=== PATIENT | male | born 1975 | race Caucasian/White ===

== ENCOUNTER 2016-11-10 16:58 | Emergency (ER) | payer MEDICARE, OTHER ==
[~2016-11-10 16:58] MED LIST: ACETAMINOPHEN325 MG PO; AL-MAG HYDROX-S30 M1 PO; ALPRAZOLAM PO; ARIXTRA7.5 MG/0.6 SQ; ASPIRIN81 M1 PO; CELEXA PO; COUMADIN5 MG PO; CYMBALTA PO; GABAPENTIN800 MG PO; HYDROCODON-ACE1 EAC5 PO; LAMICTAL PO; LAMICTAL5 MG PO; LISINOPRIL PO; LISINOPRIL20 MG PO; LORTAB 10-5001 EACH PO; LORTAB 10/500 T1 TAB PO; LORTAB 5/500 TA1 TA1 PO; MILK OF MAGNESIA PO; MINIPRESS PO; NEURONTIN800 MG PO; NICOTINE TRANSDE7 MG EXT; NORCO 10/3251 TAB PO; NORCO 7.5-3251 EACH PO; PRINIVIL40 MG PO; SEROQUEL300 M1 PO; TRAZODONE HCL150 MG PO; TYLENOL #3 PO; VOLTAREN50 MG PO; WARFARIN SODIUM2 MG PO; XANAX1 MG PO; XANAX2 MG PO; XARELTO20 MG PO; ZESTRIL40 MG PO; [UNRECOGNIZED DRUG - OTHER] PO
[2016-11-10 18:41] LABS: AMPHETAMINE POS (NEG); BARBITURATES NEG (NEG); BENZODIAZEPINES NEG (NEG); COCAINE NEG (NEG); MARIJUANA POS (NEG); OPIATES POS (NEG); TRICYCLIC ANTIDEPRESSANTS NEG (NEG); U METHADONE NEG (NEG)
[2017-02-06] MEDS ORDERED: SEROQUEL400 MG PO (16:34)
[2017-02-06] MEDS ORDERED: DULOXETINE HCL60 MG PO (16:34)
[2017-02-06] MEDS ORDERED: NEURONTIN800 MG PO (16:34)
[2017-02-06] MEDS ORDERED: LISINOPRIL20 MG PO (16:35)
== END 2016-11-10 23:10 ==
LOC: CED 16:58
PROVIDERS: Emergency Medicine
DX: R45.851 Suicidal ideations (principal)
CPT/HCPCS: 80307; 99285

== ENCOUNTER 2016-11-21 04:28 | Inpatient (IN) | payer MEDICARE, OTHER ==
--- NOTE | ~2016-11-21 | PN ---
Unit #: [id number] #: [id number] Patient: WAI HENNING [id number] [facility] [address] [place] [address] [id number] I MR#: [id number] NAME: WAI HENNING ROOM: P212 Age: 41 Sex: M Admission Date: 11/21/2016 : 1975 Attending Physician: Mak Hirsch M.D. Admitting Physician: Mak Hirsch M.D. Primary Care Physician: Everett Holguin PROGRESS NOTES DATE 11/22/2016 DISCUSSION The patient remains hopeless and dysphoric but is expressing hope that he will be able to go to a prison upon his discharge from this facility. He has begun work with his transition social worker regarding this. He will be transferred to the [address] [place] [address] in a timely fashion as possible. Dictated by... Mak Hirsch M.D. CB/huey TD: 11/22/2016 13:21 JOB #: [id number] [facility] PROGRESS NOTES X Mak Hirsch MD PROGRESS NOTE
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
--- NOTE | ~2016-11-21 | PN ---
Unit #: [id number] #: [id number] Patient: WAI HENNING [id number] [facility] [address] [place] [address] [id number] I MR#: [id number] NAME: WAI HENNING ROOM: [facility] Age: 41 Sex: M Admission Date: 11/21/2016 : 1975 Attending Physician: Mak Hirsch M.D. Admitting Physician: Mak Hirsch M.D. Primary Care Physician: Everett Holguin PROGRESS NOTES DATE 12/05/2016 DISCUSSION The patient seems more positive today regarding potential fdc placement, and we will look to continue hospitalization until that can be arranged. Otherwise, the patient is pleasant and cooperative and active within the therapeutic milieu. He is reporting reduction in suicidal thinking. Dictated by... Mak Hirsch M.D. CB/bzg TD: 12/05/2016 14:00 JOB #: [id number] [facility] PROGRESS NOTES Page 1 of 1 X Mak Hirsch MD PROGRESS NOTE
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
--- NOTE | ~2016-11-21 | PN ---
Unit #: [id number] #: [id number] Patient: WAI HENNING [id number] [facility] [address] [place] [address] [id number] I MR#: [id number] NAME: WAI HENNING ROOM: [facility] Age: 41 Sex: M Admission Date: 11/21/2016 : 1975 Attending Physician: Mak Hirsch M.D. Admitting Physician: Mak Hirsch M.D. Primary Care Physician: Everett Holguin PROGRESS NOTES DATE 11/30/2016 DISCUSSION The patient offers no new complaints today. We continue to await word regarding possible post-discharge intermediate placement. Dictated by... Mak Hirsch M.D. CB/renetta TD: 11/30/2016 13:24 JOB #: [id number] [facility] PROGRESS NOTES X Mak Hirsch MD X PROGRESS NOTE
--- NOTE | ~2016-11-21 | PN ---
Unit #: [id number] #: [id number] Patient: WAI HENNING [id number] [facility] [address] [place] [address] [id number] I MR#: [id number] NAME: WAI HENNING ROOM: [facility] Age: 41 Sex: M Admission Date: 11/21/2016 : 1975 Attending Physician: Mak Hirsch M.D. Admitting Physician: Mak Hirsch M.D. Primary Care Physician: Everett Holguin PROGRESS NOTES DATE 12/07/2016 DISCUSSION The patient is in brighter spirits with planned a.m. discharge. We plan to order discharge tomorrow for early Friday morning discharge. Dictated by... Mak Hirsch M.D. CB/mauro TD: 12/07/2016 15:01 JOB #: [id number] [facility] PROGRESS NOTES Page 1 of 1 X Mak Hirsch MD X PROGRESS NOTE
--- NOTE | ~2016-11-21 | PN ---
Unit #: [id number] #: [id number] Patient: WAI HENNING [id number] [facility] [address] [place] [address] [id number] I MR#: [id number] NAME: WAI HENNING ROOM: [facility] Age: 41 Sex: M Admission Date: 11/21/2016 : 1975 Attending Physician: Mak Hirsch M.D. Admitting Physician: Mak Hirsch M.D. Primary Care Physician: Everett Holguin PROGRESS NOTES DATE 11/29/2016 DISCUSSION The patient offers no new complaints today. We continue to await word regarding potential residential placement in a halfway given the patient's inability to thrive outside the hospital independently. Dictated by... Mak Hirsch M.D. CB/bzmyles TD: 11/30/2016 07:14 JOB #: [id number] [facility] GOLDBERG NOTES X Mak Hirsch MD PROGRESS NOTE
--- NOTE | ~2016-11-21 | PN ---
Unit #: [id number] #: [id number] Patient: WAI HENNING [id number] [facility] [address] [place] [address] [id number] I MR#: [id number] NAME: WAI HENNING ROOM: [facility] Age: 41 Sex: M Admission Date: 11/21/2016 : 1975 Attending Physician: Mak Hirsch M.D. Admitting Physician: Mak Hirsch M.D. Primary Care Physician: Evreett Holguin PROGRESS NOTES DATE 12/04/2016 DISCUSSION The patient reports that his social group worker, Mr. aButista, has located a possible location for him, but the patient is now expressing some hesitance to go there which has been frustratingly his course in the past. If the patient is offered housing as of tomorrow and declines it, I will go ahead with the plan for discharge. Dictated by... Mak Hirsch M.D. CB/renetta TD: 12/04/2016 13:58 JOB #: [id number] [facility] PROGRESS NOTES Page 1 of 1 X Mak Hirsch MD X PROGRESS NOTE
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
--- NOTE | ~2016-11-21 | CO ---
Unit #: [id number] #: [id number] Patient: MARGARITO HENNING [id number] [place] [address] [id number] I MR#: [id number] NAME: MARGARITO HENNING. ROOM: P266 Age: 41 Sex: M Admission Date: 11/21/2016 : 1975 Attending Physician: Mak Hirsch M.D. Primary Care Physician: Teodoro Nick M.D. Consultation Date: 11/26/2016 CONSULTATION REPORT JOB NOTE: DICTATED FOR NOT DICTATED SUBJECTIVE Margarito is a 41-year-old who reported to nursing staff in the past 48 hours that he has a yellow discharge from his penis. He also reports burning with urination. 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 PLAN Doxycycline 100 mg one p.o. b.i.d. x7 days. Dictated by... Rand Turcios P.A.-C. for Everett Styles/nivia TD: 11/27/2016 18:13 JOB #: [id number] CONSULTATION REPORT X Rand Turcios CONSULTATION REPORT
--- NOTE | ~2016-11-21 | PN ---
Unit #: [id number] #: [id number] Patient: WAI HENNING [id number] [facility] [address] [place] [address] [id number] I MR#: [id number] NAME: WAI HENNING ROOM: [facility] Age: 41 Sex: M Admission Date: 11/21/2016 : 1975 Attending Physician: Mak Hirsch M.D. Admitting Physician: Mak Hirsch M.D. Primary Care Physician: Everett Holguin PROGRESS NOTES DATE 11/26/2016 DISCUSSION The patient remains generally pleasant and cooperative in his interactions with peers and staff. He is complaining of urethra discharge and is fearful he may have contracted a sexually transmitted disease. I will ask for a medical consult related thereto. Dictated by... Mak Hirsch M.D. CB/gucci TD: 11/26/2016 22:21 JOB #: [id number] [facility] GOLDBERG NOTES X Mak Hirsch MD PROGRESS NOTE
--- NOTE | ~2016-11-21 | PN ---
Unit #: [id number] #: [id number] Patient: WAI HENNING [id number] [facility] [address] [place] [address] [id number] I MR#: [id number] NAME: WAI HENNING ROOM: [facility] Age: 41 Sex: M Admission Date: 11/21/2016 : 1975 Attending Physician: Mak Hirsch M.D. Admitting Physician: Mak Hirsch M.D. Primary Care Physician: Everett Holguin PROGRESS NOTES DATE 11/28/2016 DISCUSSION The patient is abed today offering no new complaints. We continue to await results of his PPD, and we continue to await word regarding shelter placement. The patient has been pleasant and cooperative and has reported reduction in suicidal ideation during today's interview. Dictated by... Mak Hirsch M.D. CB/renetta TD: 11/28/2016 14:22 JOB #: [id number] [facility] PROGRESS NOTES X Mak Hirsch MD PROGRESS NOTE
--- NOTE | ~2016-11-21 | PN ---
Unit #: [id number] #: [id number] Patient: WAI HENNING [id number] [facility] [address] [place] [address] [id number] I MR#: [id number] NAME: WAI HENNING ROOM: [facility] Age: 41 Sex: M Admission Date: 11/21/2016 : 1975 Attending Physician: Mak Hirsch M.D. Admitting Physician: Mak Hirsch M.D. Primary Care Physician: Everett Holguin PROGRESS NOTES DATE 12/01/2016 DISCUSSION The patient offers no new complaints today. He is active within the therapeutic milieu and we await word regarding possible placement in a fpc or other such setting. Dictated by... Mak Hirsch M.D. CB/gucci TD: 12/01/2016 21:08 JOB #: [id number] [facility] PROGRESS NOTES X Mak Hirsch MD PROGRESS NOTE
--- NOTE | ~2016-11-21 | CR63 ---
[facility] A Service of [facility] RADIOLOGY TEXT RESULTS PATIENT: WAI HENNING LOCATION: P2 P266-2 : [birth year] UNIT #: [id number] AGE: [address]: Mak Hirsch MD SEX: M ORDER DR: [id number] [facility] [address] [facility]. [place], [place] [address] [id number] I MR#: [id number] Acc #: [id number] NAME: WAI HENNING : 1975 SEX: M STUDY DATE/TIME: 11/30/2016 14:04 UNIT: [facility] ROOM: [facility] STUDY DESCRIPTION: CR Chest 2 View Attending Physician: Mak Hirsch M.D. Ordering Physician: Sosa Diana A.P.R.N. Primary Care Physician: Teodoro Nick M.D. MEDICAL IMAGING REPORT This report is preliminary unless electronic signature is present EXAM Chest 2 views 11/30/2016 HISTORY Positive PPD skin test. COMPARISON Chest 01/29/2016. FINDINGS 2 views of the chest demonstrate clear lungs. No pleural effusion or pneumothorax. Heart size and mediastinum are normal. Pulmonary vasculature normal. IMPRESSION No acute cardiopulmonary findings. Dictated by... Orestes Aguilar M.D. THIS IS AN ELECTRONICALLY VERIFIED REPORT Orestes Aguilar M.D. at 12/02/2016 7:47 AM TANIA/ryan TD: 12/01/2016 13:43 JOB #: [id number] MEDICAL IMAGING REPORT COPY
--- NOTE | ~2016-11-21 | PN ---
Unit #: [id number] #: [id number] Patient: WAI HENNING [id number] [facility] [address] [place] [address] [id number] I MR#: [id number] NAME: WAI HENNING ROOM: [facility] Age: 41 Sex: M Admission Date: 11/21/2016 : 1975 Attending Physician: Mak Hirsch M.D. Admitting Physician: Mak Hirsch M.D. Primary Care Physician: Everett Holguin PROGRESS NOTES DATE 11/27/2016 DISCUSSION We continue to await word regarding possible placement in a nursing home or other such setting. In the meantime, the patient's last PPD was not read, and we will have to repeat this test. The patient has been started on doxycycline for nonspecific urethritis. Current treatment continues. Dictated by... Mak Hirsch M.D. CB/bzg TD: 11/27/2016 12:38 JOB #: [id number] [facility] GOLDBERG NOTES X Mak Hirsch MD PROGRESS NOTE
--- NOTE | ~2016-11-21 | CO ---
Unit #: [id number] #: [id number] Patient: MARGARITO HENNING [id number] [place] [address] [id number] I MR#: [id number] NAME: MARGARITO HENNING. ROOM: [facility] Age: 41 Sex: M Admission Date: 11/21/2016 : 1975 Attending Physician: Mak Hirsch M.D. Primary Care Physician: Teodoro Nick M.D. Consultation Date: 12/01/2016 CONSULTATION REPORT JOB NOTE: DICTATED FOR NOT DICTATED HISTORY OF PRESENT ILLNESS Margarito had a TB skin test placed on 11/29/2016 at 11:50 a.m. On 11/30/2016, he appeared to be having reaction to the TB skin test. There was some concern that it might be positive. He reports that the area on his right forearm got very red and raised. He did have some itching. No chest pain. No cough. No shortness of breath. No other complaints. PHYSICAL EXAMINATION CARDIAC: Regular rate and rhythm. No murmur, gallop, or rub. RESPIRATORY: Clear to auscultation bilaterally. SKIN: Negative TB skin test. ASSESSMENT AND PLAN TB skin test. I read the TB skin test at 1400 hours on 12/01/2016, which is 48 hours after the TB skin test was placed and at that time, it was negative. It is very likely that he had a local allergic reaction to the test that has resolved. He had a chest x-ray yesterday that was negative. Dictated by... Esther Marr A.P.R.N. for Everett Styles/nivia TD: 12/01/2016 18:08 JOB #: [id number] CONSULTATION REPORT X ESTHER MANZANARES APRN CONSULTATION REPORT
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
--- NOTE | ~2016-11-21 | PN ---
Unit #: [id number] #: [id number] Patient: WAI HENNING [id number] [facility] [address] [place] [address] [id number] I MR#: [id number] NAME: WAI HENNING ROOM: [facility] Age: Sex: M Admission Date: 11/21/2016 : 1975 Attending Physician: Mak Hirsch M.D. Admitting Physician: Mak Hirsch M.D. Primary Care Physician: Everett Holguin PROGRESS NOTES DATE 12/06/2016 DISCUSSION The patient is in better spirits today. He has been in contact with his destination shelter, and a prescription for his HCV waver has been written. The patient's chest x-ray and PPD are both negative. Dictated by... Mak Hirsch M.D. CB/renetta TD: 12/06/2016 13:10 JOB #: [id number] [facility] GOLDBERG NOTES Page 1 of 1 X aMk Hirsch MD PROGRESS NOTE
--- NOTE | ~2016-11-21 | PN ---
Unit #: [id number] #: [id number] Patient: WAI HENNING [id number] [facility] [address] [place] [address] [id number] I MR#: [id number] NAME: WAI HENNING ROOM: [facility] Age: 41 Sex: M Admission Date: 11/21/2016 : 1975 Attending Physician: Mak Hirsch M.D. Admitting Physician: Mak Hirsch M.D. Primary Care Physician: Everett Holguin PROGRESS NOTES DATE 11/25/2016 DISCUSSION The patient is abed resting comfortably today. He offers no new complaints. We will continue to wait word regarding possible jail placement. Dictated by... Mak Hirsch M.D. CB/gucci TD: 11/26/2016 01:13 JOB #: [id number] [facility] PROGRESS NOTES X Mak Hirsch MD X PROGRESS NOTE
--- NOTE | ~2016-11-21 | PN ---
Unit #: [id number] #: [id number] Patient: WAI HENNING [id number] [facility] [address] [place] [address] [id number] I MR#: [id number] NAME: WAI HENNING ROOM: [facility] Age: 41 Sex: M Admission Date: 11/21/2016 : 1975 Attending Physician: Mak Hirsch M.D. Admitting Physician: Mak Hirsch M.D. Primary Care Physician: Everett Holguin PROGRESS NOTES DATE 11/24/2016 DISCUSSION The patient offers no new complaints today. He is generally pleasant and active in the therapeutic milieu. We continue to await word regarding possible skilled nursing placement. Dictated by... Mak Hirsch M.D. CB/ankush TD: 11/24/2016 13:58 JOB #: [id number] [facility] PROGRESS NOTES X Mak Hirsch MD X PROGRESS NOTE
--- NOTE | ~2016-11-21 | PN ---
Unit #: [id number] #: [id number] Patient: WAI HENNING [id number] [facility] [address] [place] [address] [id number] MR#: [id number] NAME: WAI HENNING ROOM: [facility] Age: 41 Sex: M Admission Date: 11/21/2016 : 1975 Attending Physician: aMk Hirsch M.D. Admitting Physician: Mak Hirsch M.D. Primary Care Physician: Everett Holguin PROGRESS NOTES DATE 11/23/2016 DISCUSSION The patient offers no new complaints today. We continue to await word regarding possible half-way placement. Dictated by... Mak Hirsch M.D. CB/mauro TD: 11/23/2016 11:58 JOB #: [id number] [facility] PROGRESS NOTES X Mak Hirsch MD X PROGRESS NOTE
--- NOTE | ~2016-11-21 | PN ---
Unit #: [id number] #: [id number] Patient: WAI HENNING [id number] [facility] [address] [place] [address] [id number] MR#: [id number] NAME: WAI HENNING ROOM: [facility] Age: 41 Sex: M Admission Date: 11/21/2016 : 1975 Attending Physician: Mak Hirsch M.D. Admitting Physician: Mak Hirsch M.D. Primary Care Physician: Everett Holguin PROGRESS NOTES DATE 12/02/2016 DISCUSSION The patient remains pleasant and cooperative (1)____ interactions with peers and staff. We continue to await word regarding disposition. Dictated by... Mak Hirsch M.D. CB/gucci TD: 12/02/2016 18:49 JOB #: [id number] [facility] PROGRESS NOTES Page 1 of 1 X Mak Hirsch MD X PROGRESS NOTE
--- NOTE | ~2016-11-21 | PN ---
Unit #: [id number] #: [id number] Patient: WAI HENNING [id number] [facility] [address] [place] [address] [id number] MR#: [id number] NAME: WAI HENNING ROOM: [facility] Age: 41 Sex: M Admission Date: 11/21/2016 : 1975 Attending Physician: Mak Hirsch M.D. Admitting Physician: Mak Hirsch M.D. Primary Care Physician: Everett Holguin PROGRESS NOTES DATE 12/03/2016 DISCUSSION The patient remains pleasant and cooperative. We continue to await word regarding disposition. Dictated by... Mak Hirsch M.D. CB/renetta TD: 12/03/2016 13:43 JOB #: [id number] [facility] PROGRESS NOTES Page 1 of 1 X Mak Hirsch MD X PROGRESS NOTE
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
[2016-11-22 09:32] LABS: BASOPHIL# 0.1 X10e3 (0-0.3); BASOPHIL% 1.1 % (0-2.5); EOSINOPHIL# 0.1 X10e3 (0-0.7); EOSINOPHIL% 1.6 % (0.0-7.0); HEMATOCRIT 40.8 % (38.0-50.0); HEMOGLOBIN 13.4 gm/dL (13.0-16.0); LYMPHOCYTE# 1.3 X10e3 (1.0-3.5); LYMPHOCYTE% 18.1 % (17.0-45.0); MEAN CELL VOLUME 89.6 FL (83-96); MEAN CORPUSCULAR HEMOGLOBIN 29.4 PG (28-34); MEAN CORPUSCULAR HGB CONC 32.9 g/dL (30-36); MEAN PLATELET VOLUME 8.3 FL (6.5-11.5); MONOCYTE# 0.4 X10e3 (0-1.0); MONOCYTE% 5.2 % (3.0-12.0); NEUTROPHIL# 5.4 X10e3 (1.5-7.1); PLATELET COUNT 267 X10e3 (140-420); RED BLOOD COUNT 4.55 X10e (3.90-5.60); RED CELL DISTRIBUTION WIDTH 13.7 % (11.0-15.5); WHITE BLOOD COUNT 7.2 X10e3 (4.0-10.5)
[2016-11-22 09:38] LABS: DIFF IND NO
[2016-11-22 10:02] LABS: THYROID STIMULATING HORMONE 0.16 uIU/ml (0.34-5.60)
[2016-11-22 10:14] LABS: FREE THYROXIN (T4) 0.8 ng/dL (0.58-1.64)
[2016-11-22 10:40] LABS: ALBUMIN SERUM 3.8 g/dL (3.5-5.0); ALKALINE PHOSPHATASE 87 U/L (32-92); ALT (SGPT) 65 U/L (10-40); AST (SGOT) 48 U/L (10-42); BILIRUBIN,TOTAL 0.7 mg/dL (0.2-2.0); BLOOD UREA NITROGEN 16 mg/dL (9-23); CARBON DIOXIDE 25 mmol/L (22-31); CHLORIDE 107 mmol/L (100-111); CREATININE SERUM 0.8 mg/dL (0.6-1.4); GLOM FILT RATE Estimated ABOVE60 mL/min (>60); GLUCOSE FASTING 121 mg/dL (70-110); POTASSIUM 3.9 mmol/L (3.5-5.1); PROTEIN TOTAL SERUM 6.9 g/dL (6.0-8.3); SODIUM 135 mmol/L (135-145)
[2016-11-22 12:43] LABS: URINE APPEARANCE CLEAR; URINE BILIRUBIN NEG (NEG); URINE BLOOD NEG (NEG); URINE COLOR YELLOW; URINE GLUCOSE NEG (NEG); URINE KETONE NEG (NEG); URINE LEUKOCYTE ESTERASE 1+ (NEG); URINE NITRATE NEG (NEG); URINE PROTEIN NEG (NEG); URINE SPECIFIC GRAVITY 1.013 (1.003-1.035)
[2016-11-22 12:45] LABS: U HYALINE CASTS AUWI 0-2 /[LPF]; URBCS1 AUWI 0-2 /[HPF] (0-2); URINE BACTERIA AUWI NEG (NEGATIVE); URINE SQUAMOUS EPITHELIAL CELL NONE SEEN /[HPF]
[2016-11-22 13:44] LABS: AMPHETAMINE POS (NEG); BARBITURATES NEG (NEG); BENZODIAZEPINES POS (NEG); COCAINE NEG (NEG); MARIJUANA POS (NEG); OPIATES POS (NEG); TRICYCLIC ANTIDEPRESSANTS POS (NEG); U METHADONE NEG (NEG)
[2017-02-06] MEDS ORDERED: SEROQUEL400 MG PO (16:34)
[2017-02-06] MEDS ORDERED: DULOXETINE HCL60 MG PO (16:34)
[2017-02-06] MEDS ORDERED: NEURONTIN800 MG PO (16:34)
[2017-02-06] MEDS ORDERED: LISINOPRIL20 MG PO (16:35)
== END 2016-12-09 10:30 | disposition home or self-care (01) | DRG 885 ==
LOC: P2S 04:28 → P2L 11-22 14:30 → POF 11-22 15:28 → P2L 11-22 15:34 → POF 11-28 13:43 → P2L 11-28 13:44
PROVIDERS: Specialist
DX: F33.1 Major depressive disorder, recurrent, moderate (principal); R45.851 Suicidal ideations; I10 Essential (primary) hypertension; F60.3 Borderline personality disorder; G89.29 Other chronic pain; F17.210 Nicotine dependence, cigarettes, uncomplicated; N34.1 Nonspecific urethritis; F34.1 Dysthymic disorder
CPT/HCPCS: 71020; 80053; 80307; 81003; 84439; 84443; 85025; 99285

== ENCOUNTER 2017-01-03 17:47 | Inpatient (IN) | payer MEDICARE, OTHER ==
--- NOTE | ~2017-01-03 | PN ---
Unit #: [id number] #: [id number] Patient: WAI HENNING [id number] [facility] [address] [place] [address] [id number] I MR#: [id number] NAME: WAI HENNING ROOM: [facility] Age: 41 Sex: M Admission Date: 01/03/2017 : 1975 Attending Physician: Mak Hirsch M.D. Admitting Physician: Mak Hirsch M.D. Primary Care Physician: Everett Holguin PROGRESS NOTES DATE 01/07/2017 DISCUSSION The patient continues to express sad mood. He does apologize related to the recent episode in which he did not go to the fpc which has been arranged by Mr. Bautista. Otherwise the patient offers no new complaints, and we continue current treatment. He remains on suicide precautions, and he is at maximum doses of virtually all of his medications, and I do not plan any changes given the situation and nature of his current symptoms. Dictated by... Mak Hirsch M.D. CB/renetta TD: 01/07/2017 15:16 JOB #: [id number] [facility] PROGRESS NOTES Page 1 of 1 X Mak Hirsch MD X PROGRESS NOTE
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
--- NOTE | ~2017-01-03 | PN ---
Unit #: [id number] #: [id number] Patient: WAI HENNING [id number] [facility] [address] [place] [address] [id number] I MR#: [id number] NAME: WAI HENNING ROOM: [facility] Age: 41 Sex: M Admission Date: 01/03/2017 : 1975 Attending Physician: Mak Hirsch M.D. Admitting Physician: Mak Hirsch M.D. Primary Care Physician: Everett Holguin PROGRESS NOTES DATE 01/06/2017 DISCUSSION The patient continues to complain of dysphoric mood when seen today. This physician has clarified with Mr. , the patient's social media strategist the patient's "lack of transportation" to the longterm with the social media strategist had arranged. The patient had told the social media strategist that he had planned to have his cousin drive him to the facility and had gone home to "get some things together" rather than accepting an offer of transportation from the social media strategist. The patient will firmly confronted regarding this today. Dictated by... Everett Dickson TD: 01/06/2017 13:27 JOB #: [id number] [facility] PROGRESS NOTES Page 1 of 1 X Mak Hirsch MD X PROGRESS NOTE
--- NOTE | ~2017-01-03 | CO ---
Unit #: [id number] #: [id number] Patient: MARGARITO HENNING [id number] [place] [address] [id number] MR#: [id number] NAME: MARGARITO HENNING. ROOM: 61 Age: 41 Sex: M Admission Date: 01/03/2017 : 1975 Attending Physician: Mak Hirsch M.D. Primary Care Physician: Teodoro Nick M.D. CONSULTATION REPORT SUBJECTIVE Margarito is a 41-year-old who had complained of some clear postnasal drainage over the past 48 hours. We have been asked to assess and give recommendations. He has had no complaints of sore throat, cough, or shortness of breath. He has had no recorded increased temperatures. OBJECTIVE GENERAL: Alert, well nourished, in no apparent distress. VITAL SIGNS: Blood pressure 130/70, heart rate 80, respirations 16, and temperature 98.6. HEENT: Normocephalic. TMs not viewed. Oral and nasal passages clear. Small amounts of clear postnasal drainage noted. NECK: Supple without lymphadenopathy. CHEST: Lungs clear. ASSESSMENT Viral upper respiratory infection versus allergic rhinitis, resolved by the patient's report. PLAN No Rx. He is to let us know if anything else develops. Dictated by... Rand Turcios P.A.-C. for Everett Styles/nivia TD: 01/07/2017 17:06 JOB #: [id number] CONSULTATION REPORT Page 1 of 1 X Rand Turcios X CONSULTATION REPORT
--- NOTE | ~2017-01-03 | PN ---
Unit #: [id number] #: [id number] Patient: WAI HENNING [id number] [facility] [address] [place] [address] [id number] I MR#: [id number] NAME: WAI HENNING ROOM: P261 Age: 41 Sex: M Admission Date: 01/03/2017 : 1975 Attending Physician: Mak Hirsch M.D. Admitting Physician: Mak Hirsch M.D. Primary Care Physician: Everett Holguin PROGRESS NOTES DATE 01/08/2017 DISCUSSION The patient offers no new complaints today. He is contrite over the events which led to his failing to make it to the halfway which had been arranged by Mr. Bautista during his last day in the hospital and continues to express some feelings of hopelessness and ambivalence regarding discharge. I have redirected the patient's expectations regarding inpatient care during today's interview, and I have told him to expect discharge by the end of the week. Dictated by... Mak Hirsch M.D. CB/renetta TD: 01/08/2017 12:59 JOB #: [id number] [facility] PROGRESS NOTES Page 1 of 1 X Mak Hirsch MD X PROGRESS NOTE
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
--- NOTE | ~2017-01-03 | PN ---
Unit #: [id number] #: [id number] Patient: WAI HENNING [id number] [facility] [address] [place] [address] [id number] MR#: [id number] NAME: WAI HENNING ROOM: P261 Age: 41 Sex: M Admission Date: 01/03/2017 : 1975 Attending Physician: Mak Hirsch M.D. Admitting Physician: Mak Hirsch M.D. Primary Care Physician: Everett Holguin PROGRESS NOTES DATE 01/05/2017 DISCUSSION The patient offers no new complaints today. He states that he feels "about the same" and continues to endorse positive suicidal ideation and once again his expectations of inpatient care are redirected. Dictated by... Mak Hirsch M.D. CB/to TD: 01/05/2017 15:32 JOB #: [id number] [facility] PROGRESS NOTES Page 1 of 1 X Mak Hirsch MD PROGRESS NOTE
--- NOTE | ~2017-01-03 | PN ---
Unit #: [id number] #: [id number] Patient: WAI HENNING [id number] [facility] [address] [place] [address] [id number] I MR#: [id number] NAME: WAI HENNING ROOM: [facility] Age: 41 Sex: M Admission Date: 01/03/2017 : 1975 Attending Physician: Mak Hirsch M.D. Admitting Physician: Mak Hirsch M.D. Primary Care Physician: Everett Holguin PROGRESS NOTES DATE 01/09/2017 DISCUSSION The patient is in brighter spirits and is reporting reduction in suicidal ideation. We continue to plan on a.m. discharge. Dictated by... Mak Hirsch M.D. CB/huey TD: 01/09/2017 13:04 JOB #: [id number] [facility] PROGRESS NOTES Page 1 of 1 X Mak Hirsch MD X PROGRESS NOTE
[2017-02-06] MEDS ORDERED: NEURONTIN800 MG PO (16:34)
[2017-02-06] MEDS ORDERED: SEROQUEL400 MG PO (16:34)
[2017-02-06] MEDS ORDERED: DULOXETINE HCL60 MG PO (16:34)
[2017-02-06] MEDS ORDERED: LISINOPRIL20 MG PO (16:35)
== END 2017-01-10 15:20 | disposition home or self-care (01) | DRG 885 ==
LOC: P2L 17:47
DX: F33.1 Major depressive disorder, recurrent, moderate (principal); R45.851 Suicidal ideations; I10 Essential (primary) hypertension; Z79.899 Other long term (current) drug therapy; K21.9 Gastro-esophageal reflux disease without esophagitis; J06.9 Acute upper respiratory infection, unspecified; J30.9 Allergic rhinitis, unspecified; F60.9 Personality disorder, unspecified

== ENCOUNTER 2017-01-26 11:17 | Emergency (ER) | payer MEDICARE, OTHER ==
--- NOTE | ~2017-01-26 | CT2 ---
[facility] A Service of [facility] RADIOLOGY TEXT RESULTS PATIENT: WAI HENNING LOCATION: [facility] : 79 UNIT #: [id number] AGE: [address]: Cecilio Rodriguez MD SEX: M ORDER DR: [id number] [place] [id number] [facility]. [place], [place] [address] [id number] MR#: [id number] Acc #: [id number] NAME: WAI HENNING : 1975 SEX: M STUDY DATE/TIME: 01/26/2017 13:27 UNIT: SHER ROOM: STUDY DESCRIPTION: CT Abd and Pelv W Cont Attending Physician: Cecilio Rodriguez M.D. Ordering Physician: Cecilio Rodriguez M.D. Primary Care Physician: Teodoro Nick M.D. MEDICAL IMAGING REPORT This report is preliminary unless electronic signature is present EXAM CT of the abdomen and pelvis with contrast INDICATION Left upper abdominal pain and nausea for [address] scan of the abdomen and pelvis was performed following the administration of IV contrast. Coronal and sagittal reformatted images were obtained. Comparison with 03/14/2015. This CT exam was performed with one or more of the following radiation dose reduction techniques: automatic exposure control, adjustment of mA and/or kV according to patient size, and iterative reconstruction. FINDINGS The lung bases are clear. There is focal fatty infiltration of the liver adjacent to the falciform ligament. The liver is unremarkable. The gallbladder is unremarkable. Spleen is unremarkable. The kidneys are unremarkable. The adrenal glands are unremarkable. The pancreas is unremarkable. PELVIS: There is a stent within the right common iliac and external iliac veins. Colon is unremarkable. The appendix is normal. There is no free fluid. Remainder of the pelvis is unremarkable. Bone windows demonstrate an old compression deformity of L3. IMPRESSION There are no CT findings to explain the patient's symptoms. There are no acute findings. [facility] A Service [facility] RADIOLOGY TEXT RESULTS PATIENT: WAI HENNING LOCATION: [facility] : 79 UNIT #: [id number] AGE: [address]: Cecilio Rodriguez MD SEX: M ORDER DR: Dictated by... Julio Cesar Ellsworth M.D. THIS IS AN ELECTRONICALLY VERIFIED REPORT Julio Cesar Ellsworth M.D. at 01/27/2017 2:22 PM GETACHEW/rox TD: 01/27/2017 03:12 JOB #: [id number] MEDICAL IMAGING REPORT Page 1 of 1 COPY
[2017-01-26 12:41] LABS: BASOPHIL# 0.1 X10e3 (0-0.3); BASOPHIL% 1.2 % (0-2.5); EOSINOPHIL# 0.2 X10e3 (0-0.7); EOSINOPHIL% 3.1 % (0.0-7.0); HEMATOCRIT 43.8 % (38.0-50.0); HEMOGLOBIN 14.5 gm/dL (13.0-16.0); LYMPHOCYTE# 2.5 X10e3 (1.0-3.5); LYMPHOCYTE% 32.1 % (17.0-45.0); MEAN CELL VOLUME 89.2 FL (83-96); MEAN CORPUSCULAR HEMOGLOBIN 29.5 PG (28-34); MEAN CORPUSCULAR HGB CONC 33.1 g/dL (30-36); MEAN PLATELET VOLUME 7.8 FL (6.5-11.5); MONOCYTE# 0.8 X10e3 (0-1.0); MONOCYTE% 10.7 % (3.0-12.0); NEUTROPHIL# 4.1 X10e3 (1.5-7.1); NEUTROPHIL% 52.9 % (40-75); PLATELET COUNT 223 X10e3 (140-420); RED BLOOD COUNT 4.91 X10e (3.90-5.60); RED CELL DISTRIBUTION WIDTH 14.5 % (11.0-15.5); WHITE BLOOD COUNT 7.8 X10e3 (4.0-10.5)
[2017-01-26 12:42] LABS: DIFF IND NO
[2017-01-26 13:08] LABS: ALBUMIN SERUM 4.5 g/dL (3.5-5.0); BILIRUBIN, DIRECT 0.2 mg/dL (0.0-0.2); BILIRUBIN,INDIRECT 0.9 mg/dL (0.0-0.9); BILIRUBIN,TOTAL 1.1 mg/dL (0.2-2.0); BUN/CREATININE RATIO 15.45; CALCIUM SERUM 9.7 mg/dL (8.4-10.2); CREATININE SERUM 1.1 mg/dL (0.6-1.4); GLOM FILT RATE Estimated 84.1 mL/min (>60); POTASSIUM 3.5 mmol/L (3.5-5.1)
[2017-01-26 14:02] LABS: URINE SOURCE CLEAN CATCH
[2017-01-26 14:15] LABS: URINE APPEARANCE CLEAR; URINE BILIRUBIN NEG (NEG); URINE BLOOD NEG (NEG); URINE COLOR DK YELLOW; URINE GLUCOSE NEG (NEG); URINE KETONE NEG (NEG); URINE LEUKOCYTE ESTERASE NEG (NEG); URINE NITRATE NEG (NEG); URINE PROTEIN NEG (NEG); URINE SPECIFIC GRAVITY 1.053 (1.003-1.035)
[2017-01-26 14:21] LABS: CULTURE INDICATED? NO
[2017-02-06] MEDS ORDERED: DULOXETINE HCL60 MG PO (16:34)
[2017-02-06] MEDS ORDERED: NEURONTIN800 MG PO (16:34)
[2017-02-06] MEDS ORDERED: SEROQUEL400 MG PO (16:34)
[2017-02-06] MEDS ORDERED: LISINOPRIL20 MG PO (16:35)
== END 2017-01-26 14:47 | disposition home or self-care (01) ==
LOC: CED 11:17
DX: R10.84 Generalized abdominal pain (principal); R11.0 Nausea; I10 Essential (primary) hypertension; F17.200 Nicotine dependence, unspecified, uncomplicated; Z79.899 Other long term (current) drug therapy
CPT/HCPCS: 36415; 74177; 80048; 80076; 81003; 83690; 85025; 96361; 96365; 96374; 99284; J0500; J2405; Q9967

== ENCOUNTER 2017-02-06 19:41 | Inpatient (IN) | payer MEDICARE, OTHER ==
--- NOTE | ~2017-02-06 | PN ---
Unit #: [id number] #: [id number] Patient: WAI HENNING [id number] [facility] [address] [place] [address] [id number] I MR#: [id number] NAME: WAI HENNING ROOM: [facility] Age: 41 Sex: M Admission Date: 02/07/2017 : 1975 Attending Physician: Mak Hirsch M.D. Admitting Physician: Mak Hirsch M.D. Primary Care Physician: Everett Deng PROGRESS NOTES DATE 02/10/2017 DISCUSSION The patient offers no new complaints today but continues to report depressed mood and impulsive suicidal thinking. He is more active within the therapeutic milieu. Continue current aggressive pharmacotherapy and the importance of outpatient compliance is discussed at some length with the patient today. Dictated by... Mak Hirsch M.D. CB/gucci TD: 02/10/2017 12:09 JOB #: [id number] [facility] PROGRESS NOTES Page 1 of 1 X Mak Hirsch MD PROGRESS NOTE
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
--- NOTE | ~2017-02-06 | PN ---
Unit #: [id number] #: [id number] Patient: WAI HENNING [id number] [facility] [address] [place] [address] [id number] MR#: [id number] NAME: WAI HENNING ROOM: P113 Age: 41 Sex: M Admission Date: 02/07/2017 : 1975 Attending Physician: Mak Hirsch M.D. Admitting Physician: Mak Hirsch M.D. Primary Care Physician: Everett Deng PROGRESS NOTES DATE 02/12/2017 DISCUSSION The patient voices no new complaints today and is reporting reduced suicidal ideation. He states that he expects to ready for discharge as early as tomorrow. Dictated by... Mak Hirsch M.D. CB/bzg TD: 02/12/2017 12:52 JOB #: [id number] [facility] PROGRESS NOTES Page 1 of 1 X Mak Hirsch MD X PROGRESS NOTE
--- NOTE | ~2017-02-06 | PN ---
Unit #: [id number] #: [id number] Patient: WAI HENNING [id number] [facility] [address] [place] [address] [id number] MR#: [id number] NAME: WAI HENNING ROOM: [facility]6 Age: 41 Sex: M Admission Date: 02/07/2017 : 1975 Attending Physician: Mak Hirsch M.D. Admitting Physician: Mak Hirsch M.D. Primary Care Physician: Everett Deng PROGRESS NOTES DATE 02/08/2017 DISCUSSION The patient offers no new complaints when seen today. Staff reports no management issues but the patient does continue to endorse hopelessness and suicidal ideation. Dictated by... Mak Hirsch M.D. CB/gucci TD: 02/10/2017 03:16 JOB #: [id number] [facility] PROGRESS NOTES Page 1 of 1 X Mak Hirsch MD X PROGRESS NOTE
--- NOTE | ~2017-02-06 | PN ---
Unit #: [id number] #: [id number] Patient: WAI HENNING [id number] [facility] [address] [place] [address] [id number] I MR#: [id number] NAME: WAI HENNING ROOM: [facility] Age: 41 Sex: M Admission Date: 02/07/2017 : 1975 Attending Physician: Mak Hirsch M.D. Admitting Physician: Mak Hirsch M.D. Primary Care Physician: Everett Deng PROGRESS NOTES DATE 02/08/2017 DISCUSSION The patient remains dysphoric, flat, and continues to endorse positive suicidal ideation. He admits to a period of medication noncompliance prior to coming to the hospital, and today is again gently but firmly confronted regarding his need to consistently comply with prescribed medications. Dictated by... Mak Hirsch M.D. CB/bzg TD: 02/08/2017 12:52 JOB #: [id number] [facility] PROGRESS NOTES Page 1 of 1 X Mak Hirsch MD X PROGRESS NOTE
--- NOTE | ~2017-02-06 | PN ---
Unit #: [id number] #: [id number] Patient: WAI HENNING [id number] [facility] [address] [place] [address] [id number] I MR#: [id number] NAME: WAI HENNING ROOM: [facility]6 Age: 41 Sex: M Admission Date: 02/07/2017 : 1975 Attending Physician: Mak Hirsch M.D. Admitting Physician: Mak Hirsch M.D. Primary Care Physician: Everett Deng PROGRESS NOTES DATE 02/11/2017 DISCUSSION The patient is reporting some reduction in suicidal ideation when seen today and seems a bit brighter. We have begun discussing post-discharge options. Dictated by... Mak Hirsch M.D. CB/bzg TD: 02/11/2017 13:51 JOB #: [id number] [facility] PROGRESS NOTES Page 1 of 1 X Mak Hirsch MD X PROGRESS NOTE
[~2017-02-06 19:41] MED LIST changes: +DULOXETINE HCL60 MG PO; +SEROQUEL400 MG PO
[2017-02-08 14:54] LABS: THYROID STIMULATING HORMONE 0.32 uIU/ml (0.34-5.60)
[2017-02-08 15:01] LABS: FREE THYROXIN (T4) 0.91 ng/dL (0.58-1.64)
== END 2017-02-13 14:55 | DRG 885 ==
LOC: P1S 02-07 10:59 → POF 02-07 10:59 → P1S 02-07 12:14
PROVIDERS: Specialist
DX: F33.1 Major depressive disorder, recurrent, moderate (principal); R45.851 Suicidal ideations; Z91.14 Patient's other noncompliance with medication regimen; F60.3 Borderline personality disorder; K21.9 Gastro-esophageal reflux disease without esophagitis; Z86.718 Personal history of other venous thrombosis and embolism; I10 Essential (primary) hypertension; F17.210 Nicotine dependence, cigarettes, uncomplicated
CPT/HCPCS: 36415; 80048; 80076; 80307; 81003; 82947; 84439; 84443; 85025; 99285; G0480

== ENCOUNTER 2017-03-07 10:00 | Inpatient (IN) | payer MEDICARE, OTHER ==
--- NOTE | ~2017-03-07 | PN ---
Unit #: [id number] #: [id number] Patient: WAI HENNING [id number] [facility] [address] [place] [address] [id number] I MR#: [id number] NAME: WAI HENNING. ROOM: 63 Age: 41 Sex: M Admission Date: 03/07/2017 : 1975 Attending Physician: Juan Pate M.D. Admitting Physician: Juan Pate M.D. Primary Care Physician: Everett Deng PROGRESS NOTES DATE OF SERVICE: 03/15/2017 SUBJECTIVE Upon today's assessment, the patient was found on the bed and reports he is "good." He states that upon discussing his discharge with Dr. Pate that he plans to discharge in the morning, 03/16/2017, and also will be following up with transitional living, and was helped him to get arranged post discharge. At this time, he denies suicidal or homicidal ideation and verbalizes no plan or intent. He denies auditory or visual hallucinations. No overt symptoms of psychosis were noted. He reports medication compliance. PLAN Continue with scheduled discharge on 03/16/2017, tomorrow. Dictated by... Leila Quijano APRN for Everett Dela Cruz/nivia TD: 03/19/2017 01:06 JOB #: [id number] [facility]OL[facility]ERG NOTES Page 1 of 1 X LEILA QUIJANO PROGRESS NOTE
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
--- NOTE | ~2017-03-07 | PN ---
Unit #: [id number] #: [id number] Patient: WAI HENNING [id number] [facility] [address] [place] [address] [id number] I MR#: [id number] NAME: WAI HENNING ROOM: P263 Age: 41 Sex: M Admission Date: 03/07/2017 : 1975 Attending Physician: Juan Pate M.D. Admitting Physician: Juan Pate M.D. Primary Care Physician: Ruddy Snyder M.D. [facility] PROGRESS NOTES DATE 03/09/2017 DISCUSSION Upon today's assessment, the patient still endorses positive suicidal ideations with no specific plan, but still reports that they are ruminating in nature. He reports that his appetite has increased, and he rested well last night, and our plan is to continue with current medications and encourage integration in the milieu, and encourage groups and programming. Dictated by... LIN Erickson TD: 03/11/2017 10:42 JOB #: [id number] [facility] PROGRESS NOTES Page 1 of 1 X YANA QUIJANO PROGRESS NOTE
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
--- NOTE | ~2017-03-07 | HP ---
Unit #: [id number] #: [id number] Patient: MARGARITO HENNING [id number] [facility] [address] [place] [address] [id number] I MR#: [id number] NAME: MARGARITO HENNING ROOM: P263 Age: 41 Sex: M Admission Date: 03/07/2017 : 1975 Attending Physician: Juan Pate M.D. Admitting Physician: Juan Pate M.D. Primary Care Physician: Ruddy Snyder M.D. HISTORY AND PHYSICAL Margarito is a 41-year-old male admitted on 03/07/2017 to [facility] for suicidal ideation. He has multiple previous admissions for the same. Recently, he was admitted on 02/07/2017. I reviewed the history and physical from that admission and there are no changes. Dictated by... Gilbert Batista/mauro TD: 03/08/2017 15:27 JOB #: [id number] HISTORY AND PHYSICAL Page 1 of 1 X NIRAJ MANZANARES APRN HISTORY AND PHYSICAL
--- NOTE | ~2017-03-07 | PN ---
Unit #: [id number] #: [id number] Patient: MARGARITO HENNING [id number] [facility] [address] [place] [address] [id number] MR#: [id number] NAME: MARGARITO HENNING ROOM: [facility] Age: 41 Sex: M Admission Date: 03/07/2017 : 1975 Attending Physician: Juan Pate M.D. Admitting Physician: Juan Pate M.D. Primary Care Physician: Everett Deng PROGRESS NOTES DATE OF SERVICE 03/10/2017 DISCUSSION Margarito was admitted over the weekend for depression, hopelessness and suicidal ideation. Today he says he feels like his medications are quite not working so well" and that he is not sleeping. He has a down cast affect and a mildly disheveled appearance. He is alert and fully oriented with no evidence of psychosis. ASSESSMENT Major depressive. PLAN We will increase Cymbalta to 120 mg daily and provide trazodone p.r.n. for bedtime. Dictated by... Everett Dela Cruz/gucci TD: 03/15/2017 23:20 JOB #: [id number] [facility] PROGRESS NOTES Page 1 of 1 X Juan Pate MD PROGRESS NOTE
[2017-03-07] MEDS ORDERED: PATIENT'S PHARMACY (11:36)
== END 2017-03-16 08:30 | disposition home or self-care (01) | DRG 885 ==
LOC: P2L 15:52
DX: F33.1 Major depressive disorder, recurrent, moderate (principal); F60.3 Borderline personality disorder
CPT/HCPCS: 36415; 80048; 80307; 81003; 85025; 96360; 99285; G0480

== ENCOUNTER 2017-03-22 15:00 | Inpatient (IN) | payer MEDICARE, OTHER ==
[~2017-03-22] VITALS: Ht 180.3 cm; Wt 81.6 kg
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
--- NOTE | ~2017-03-22 | PN ---
Unit #: [id number] #: [id number] Patient: WAI HENINNG [id number] [facility] [address] [place] [address] [id number] MR#: [id number] NAME: WAI HENNING ROOM: P254 Age: 41 Sex: M Admission Date: 03/22/2017 : 1975 Attending Physician: Mak Hirsch M.D. Admitting Physician: Mak Hirsch M.D. Primary Care Physician: Everett Deng PROGRESS NOTES DATE 03/27/2017 DISCUSSION The patient continues to complain of dysphoric mood and paranoia regarding return to his home. I have begun today redirecting the patient's expectations of inpatient care. Dictated by... Mak Hirsch M.D. CB/mauro TD: 03/27/2017 15:39 JOB #: [id number] [facility] PROGRESS NOTES Page 1 of 1 X Mak Hirsch MD X PROGRESS NOTE
--- NOTE | ~2017-03-22 | PN ---
Unit #: [id number] #: [id number] Patient: WAI HENNING [id number] [facility] [address] [place] [address] [id number] MR#: [id number] NAME: WAI HENNING ROOM: P254 Age: 41 Sex: M Admission Date: 03/22/2017 : 1975 Attending Physician: Mak Hirsch M.D. Admitting Physician: Mak Hirsch M.D. Primary Care Physician: Everett Deng PROGRESS NOTES DATE 03/28/2017 DISCUSSION The patient seems a bit less dysphoric today but is complaining of significant symptoms of pharyngitis. I will ask for a med consult. We continue to look towards probable Friday discharge. Dictated by... Mak Hirsch M.D. CB/renetta TD: 03/28/2017 14:35 JOB #: [id number] [facility] PROGRESS NOTES Page 1 of 1 X Mak Hirsch MD PROGRESS NOTE
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
--- NOTE | ~2017-03-22 | PN ---
Unit #: [id number] #: [id number] Patient: WAI HENNING [id number] [facility] [address] [place] [address] [id number] I MR#: [id number] NAME: WAI HENNING ROOM: P254 Age: 41 Sex: M Admission Date: 03/22/2017 : 1975 Attending Physician: Mak Hirsch M.D. Admitting Physician: Mak Hirsch M.D. Primary Care Physician: Everett Deng PROGRESS NOTES DATE 03/31/2017 DISCUSSION The patient requests one further day of hospitalization stating that he is working with [facility] towards housing once discharged, given this and the circumstances of admission we will allow the patient one further day in the hospital and the importance of outpatient followup is described. Dictated by... Mak Hirsch M.D. CB/huey TD: 03/31/2017 13:14 JOB #: [id number] [facility] PROGRESS NOTES Page 1 of 1 X Mak Hirsch MD PROGRESS NOTE
--- NOTE | ~2017-03-22 | PN ---
Unit #: [id number] #: [id number] Patient: WAI HENNING [id number] [facility] [address] [place] [address] [id number] I MR#: [id number] NAME: WAI HENNING ROOM: P254 Age: 41 Sex: M Admission Date: 03/22/2017 : 1975 Attending Physician: Mak Hirsch M.D. Admitting Physician: Mak Hirsch M.D. Primary Care Physician: Everett Deng PROGRESS NOTES DATE 03/29/2017 DISCUSSION The patient continues to express concern regarding discharge from the hospital but is a bit brighter and is reporting reduction in suicidal ideation. Realistic expectations of inpatient care are discussed with him today, and we continue to expect early week discharge. Dictated by... Mak Hirsch M.D. CB/bzg TD: 03/29/2017 12:38 JOB #: [id number] [facility] PROGRESS NOTES Page 1 of 1 X Mak Hirsch MD X PROGRESS NOTE
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
--- NOTE | ~2017-03-22 | CO ---
Unit #: [id number] #: [id number] Patient: WAI HENNING [id number] [facility] [address] [place] [address] [id number] I MR#: [id number] NAME: WAI HENNING. ROOM: P254 Age: 41 Sex: M Admission Date: 03/22/2017 : 1975 Attending Physician: Mak Hirsch M.D. Primary Care Physician: Ruddy Snyder M.D. Consultation Date: 03/29/2017 CONSULTATION REPORT JOB NOTE: DICTATED FOR NOT DICTATED ORDERING PROVIDER Mak Hirsch M.D. REASON FOR CONSULTATION Sore throat. SUBJECTIVE The patient reports that he has had a sore throat for about 3 days. He has positive body aches and chills, but no fever. Denies any drainage or cough. OBJECTIVE The patient has erythematous pharynx with positive cervical lymphadenopathy. The rest of his examination was unremarkable. ASSESSMENT Sore throat and pharyngitis. PLAN Plan is to get a strep screen and start the patient on viscous lidocaine for pain. If strep screen positive, we will initiate antibiotic therapy. Dictated by... Gilbert Rosales/nivia TD: 03/30/2017 12:57 JOB #: [id number] Unit #: [id number] #: [id number] Patient: WAI HENNING CONSULTATION REPORT Page 1 of 1 X KEN NAVA APRN CONSULTATION REPORT
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
--- NOTE | ~2017-03-22 | PN ---
Unit #: [id number] #: [id number] Patient: WAI HENNING [id number] [facility] [address] [place] [address] [id number] I MR#: [id number] NAME: WAI HENNING ROOM: P254 Age: 41 Sex: M Admission Date: 03/22/2017 : 1975 Attending Physician: Mak Hirsch M.D. Admitting Physician: Mak Hirsch M.D. Primary Care Physician: Ruddy Snyder M.D. [facility] PROGRESS NOTES DATE 03/30/2017 DISCUSSION The patient is resting comfortably. We continue to plan on a.m. discharge as the patient continues to show improvement. Dictated by... Mak Hirsch M.D. CB/gucci TD: 03/30/2017 21:17 JOB #: [id number] [facility] PROGRESS NOTES Page 1 of 1 X Mak Hirsch MD X PROGRESS NOTE
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
[~2017-03-22 15:00] MED LIST changes: +PATIENT'S PHARMACY
[2017-03-27 09:56] LABS: URINE APPEARANCE CLEAR; URINE BILIRUBIN NEG (NEG); URINE BLOOD NEG (NEG); URINE COLOR YELLOW; URINE GLUCOSE NEG (NEG); URINE KETONE NEG (NEG); URINE LEUKOCYTE ESTERASE NEG (NEG); URINE NITRATE NEG (NEG); URINE PH 5.5 (5-8); URINE PROTEIN NEG (NEG); URINE SPECIFIC GRAVITY 1.007 (1.003-1.035); URINE UROBILINOGEN 0.2 MG/DL (NEG)
[2017-03-27 10:18] LABS: AMPHETAMINE NEG (NEG); BARBITURATES NEG (NEG); BENZODIAZEPINES NEG (NEG); COCAINE NEG (NEG); MARIJUANA NEG (NEG); OPIATES NEG (NEG); TRICYCLIC ANTIDEPRESSANTS NEG (NEG); U METHADONE NEG (NEG)
== END 2017-04-01 14:35 | disposition home or self-care (01) | DRG 885 ==
LOC: P2L 21:07
PROVIDERS: Specialist
DX: F33.1 Major depressive disorder, recurrent, moderate (principal); R45.851 Suicidal ideations; F60.3 Borderline personality disorder; K21.9 Gastro-esophageal reflux disease without esophagitis; J02.0 Streptococcal pharyngitis
CPT/HCPCS: 36415; 80048; 80307; 81003; 85025; 87880; 99285; G0480

== ENCOUNTER 2017-05-06 10:52 | Inpatient (IN) | payer MEDICARE, OTHER ==
[~2017-05-06] VITALS: Ht 180.3 cm; Wt 81.6 kg
--- NOTE | ~2017-05-06 | PN ---
Unit #: [id number] #: [id number] Patient: WAI HENNING [id number] [facility] [address] [place] [address] [id number] I MR#: [id number] NAME: WAI HENNING ROOM: P256 Age: 41 Sex: M Admission Date: 05/06/2017 : 1975 Attending Physician: Mak Hirsch M.D. Admitting Physician: Mak Hirsch M.D. Primary Care Physician: Everett Deng PROGRESS NOTES DATE OF SERVICE 05/12/2017 DISCUSSION The patient is noted to be sitting on his bed in a darkened room today. He continues to complain of dysphoric mood, hopelessness and suicidal ideation. Again, I have attempted to redirect the patient's expectations with inpatient care and I have encouraged him to continue participation within all therapeutic activities on the unit. The patient has at least been (1) groups. Dictated by... Mak Hirsch M.D. ONOFRE/gucci TD: 05/12/2017 20:54 JOB #: [id number] [facility] PROGRESS NOTES Page 1 of 1 X Mak Hirsch MD X PROGRESS NOTE
--- NOTE | ~2017-05-06 | PN ---
Unit #: [id number] #: [id number] Patient: WAI HENNING [id number] [facility] [address] [place] [address] [id number] I MR#: [id number] NAME: WAI HENNING ROOM: P256 Age: 41 Sex: M Admission Date: 05/06/2017 : 1975 Attending Physician: Mak Hirsch M.D. Admitting Physician: Mak Hirsch M.D. Primary Care Physician: Everett Deng PROGRESS NOTES DATE 05/08/2017 DISCUSSION The patient continues to complain of depressed mood and suicidal ideation. I have increased his Cymbalta to 120 mg daily, and he has tolerated this medication increase without complaint. I have encouraged him to participate actively within the therapeutic milieu. Suicide precautions remain in place. Dictated by... Mak Hirsch M.D. CB/renetta TD: 05/08/2017 14:05 JOB #: [id number] [facility] PROGRESS NOTES Page 1 of 1 X Mak Hirsch MD X PROGRESS NOTE
--- NOTE | ~2017-05-06 | PN ---
Unit #: [id number] #: [id number] Patient: WAI HENNING [id number] [facility] [address] [place] [address] [id number] I MR#: [id number] NAME: WAI HENNING ROOM: P256 Age: 41 Sex: M Admission Date: 05/06/2017 : 1975 Attending Physician: Mak Hirsch M.D. Admitting Physician: Mak Hirsch M.D. Primary Care Physician: Everett Deng PROGRESS NOTES DATE 05/10/2017 DISCUSSION The patient remains dysphoric and continues to endorse hopelessness. He reports that his brother's "viral load" has increased to the point where his life is seriously in danger. At the same time, the patient does not report involvement of [facility] yet leading this physician to believe that the patient may be overstating the seriousness of his brother's condition. Whatever the case, he continues to endorse suicidal ideation, and we continue current treatment. He is tolerating the increased dose of Cymbalta without complaint. Dictated by... Mak Hirsch M.D. CB/renetta TD: 05/10/2017 11:37 JOB #: [id number] [facility] GOLDBERG NOTES Page 1 of 1 X Mak Hirsch MD X PROGRESS NOTE
--- NOTE | ~2017-05-06 | PN ---
Unit #: [id number] #: [id number] Patient: WAI HENNING [id number] [facility] [address] [place] [address] [id number] I MR#: [id number] NAME: WAI HENNING ROOM: P256 Age: 41 Sex: M Admission Date: 05/06/2017 : 1975 Attending Physician: Mak Hirsch M.D. Admitting Physician: Mak Hirsch M.D. Primary Care Physician: Everett Deng PROGRESS NOTES DATE 05/09/2017 DISCUSSION The patient continues to endorse positive suicidal ideation and expresses hopelessness particularly related to his brother's failing health. The patient is claiming that his brother's HIV has progressed to AIDS, and that he is now terminally ill. I have suggested that as this is the case, the patient should attempt to involve [facility] in his brother's care though it would be doubtful that the patient is actually in such dire medical straits that the patient's brother's providers have not made arrangements for [facility]. Dictated by... Mak Hirsch M.D. CB/renetta TD: 05/09/2017 13:38 JOB #: [id number] [facility] PROGRESS NOTES Page 1 of 1 X Mak Hirsch MD X PROGRESS NOTE
--- NOTE | ~2017-05-06 | PN ---
Unit #: [id number] #: [id number] Patient: WAI HENNING [id number] [facility] [address] [place] [address] [id number] I MR#: [id number] NAME: WAI HENNING ROOM: P256 Age: 41 Sex: M Admission Date: 05/06/2017 : 1975 Attending Physician: Mak Hirsch M.D. Admitting Physician: Mak Hirsch M.D. Primary Care Physician: Ruddy Snyder M.D. [facility] PROGRESS NOTES DATE 05/13/2017 DISCUSSION The patient's presentation is essentially the same. He is flat but active within the therapeutic milieu. He continues to endorse some hopelessness and thoughts of suicide. Dictated by... Mak Hirsch M.D. CB/renetta TD: 05/13/2017 14:29 JOB #: [id number] [facility] PROGRESS NOTES Page 1 of 1 X Mak Hirsch MD X PROGRESS NOTE
--- NOTE | ~2017-05-06 | PN ---
Unit #: [id number] #: [id number] Patient: WAI HENNING [id number] [facility] [address] [place] [address] [id number] MR#: [id number] NAME: WAI HENNING ROOM: P256 Age: 41 Sex: M Admission Date: 05/06/2017 : 1975 Attending Physician: Mak Hirsch M.D. Admitting Physician: Mak Hirsch M.D. Primary Care Physician: Ruddy Snyder M.D. [facility] PROGRESS NOTES DATE 05/14/2017 DISCUSSION The patient appears somewhat improved today and is more future oriented, requesting discharge by the week's end. He is reporting reduction in suicidal thinking and improvement in mood. Dictated by... Mak Hirsch M.D. CB/renetta TD: 05/14/2017 13:38 JOB #: [id number] [facility] PROGRESS NOTES Page 1 of 1 X Mak Hirsch MD X PROGRESS NOTE
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
--- NOTE | ~2017-05-06 | PN ---
Unit #: [id number] #: [id number] Patient: WAI HENNING [id number] [facility] [address] [place] [address] [id number] MR#: [id number] NAME: WAI HENNING ROOM: P256 Age: 41 Sex: M Admission Date: 05/06/2017 : 1975 Attending Physician: Mak Hirsch M.D. Admitting Physician: Mak Hirsch M.D. Primary Care Physician: Ruddy Snyder M.D. [facility] PROGRESS NOTES DATE 05/11/2017 DISCUSSION The patient continues to endorse positive suicidal ideation and hopelessness during today's interview. He is active within the therapeutic milieu and we continue current treatment. Dictated by... Mak Hirsch M.D. CB/gucci TD: 05/11/2017 21:50 JOB #: [id number] [facility] PROGRESS NOTES Page 1 of 1 X Mak Hirsch MD X PROGRESS NOTE
--- NOTE | ~2017-05-06 | DS ---
Unit #: [id number] #: [id number] Patient: WAI HENNING [id number] [facility] [address] [place] [address] [id number] MR#: [id number] NAME: WAI HENNING. ROOM: P256 Age: 41 Sex: M Admission Date: 05/06/2017 : 1975 Discharge Date: 05/15/2017 Attending Physician: Mak Hirsch M.D. Primary Care Physician: Ruddy Snyder M.D. DISCHARGE SUMMARY REASON FOR ADMISSION The patient is a 41-year-old white male, admitted with worsening depression. HOSPITAL COURSE The patient was admitted to the [facility] unit and placed on suicide precautions. Cymbalta was increased to 120 mg daily which the patient tolerating without complaint. The patient complained that his brother's health was failing to a point where was possibly "terminal." This physician suggested to the patient that he have his patient's brother consider a [facility] referral. In the meantime the patient was generally pleasant and cooperative in his interactions with peers and staff and by 05/15 requested discharge was ordered. FINAL DIAGNOSIS 1. Major depressive disorder recurrent moderate. 2. Hypertension. DISPOSITION ON DISCHARGE The patient is discharged on the following medications: 1. Cymbalta 120 mg daily for depression. 2. Seroquel 400 mg at bedtime for mood stabilization. 3. Zestril 20 mg daily for hypertension. 4. Neurontin 800 mg three times daily for anxiety and pain. No dietary or physical restrictions were placed upon the patient at the time of discharge. Followup to take place through the auspices of community mental treatment resources. Patient's prognosis is considered fair. Dictated by... Mak Hirsch M.D. CB/gucci TD: 05/16/2017 01:49 JOB #: [id number] Unit #: [id number] #: [id number] Patient: WAI HENNING DISCHARGE SUMMARY Page 1 of 1 X Mak Hirsch MD X DISCHARGE SUMMARY
[2017-05-07 12:27] LABS: BASOPHIL# 0.1 X10e3 (0-0.3); BASOPHIL% 0.9 % (0-2.5); EOSINOPHIL# 0.2 X10e3 (0-0.7); HEMATOCRIT 39.8 % (38.0-50.0); HEMOGLOBIN 13.3 gm/dL (13.0-16.0); LYMPHOCYTE# 1.8 X10e3 (1.0-3.5); LYMPHOCYTE% 30.5 % (17.0-45.0); MEAN CORPUSCULAR HEMOGLOBIN 30.4 PG (28-34); MEAN CORPUSCULAR HGB CONC 33.3 g/dL (30-36); MEAN PLATELET VOLUME 8.7 FL (6.5-11.5); MONOCYTE# 0.4 X10e3 (0-1.0); MONOCYTE% 7.4 % (3.0-12.0); NEUTROPHIL# 3.4 X10e3 (1.5-7.1); NEUTROPHIL% 58.2 % (40-75); PLATELET COUNT 208 X10e3 (140-420); RED BLOOD COUNT 4.38 X10e (3.90-5.60); RED CELL DISTRIBUTION WIDTH 14.5 % (11.0-15.5); WHITE BLOOD COUNT 5.8 X10e3 (4.0-10.5)
[2017-05-07 12:30] LABS: DIFF IND NO
[2017-05-07 12:36] LABS: ALBUMIN SERUM 3.7 g/dL (3.5-5.0); BILIRUBIN,TOTAL 0.5 mg/dL (0.2-2.0); BUN/CREATININE RATIO 16.25; CALCIUM SERUM 9.2 mg/dL (8.4-10.2); CREATININE SERUM 0.8 mg/dL (0.6-1.4); GLOM FILT RATE Estimated 112.6 mL/min (>60); POTASSIUM 4.3 mmol/L (3.5-5.1); PROTEIN TOTAL SERUM 6.3 g/dL (6.0-8.3)
[2017-05-09 12:47] LABS: URINE APPEARANCE CLEAR; URINE BILIRUBIN NEG (NEG); URINE BLOOD NEG (NEG); URINE COLOR YELLOW; URINE GLUCOSE NEG (NEG); URINE KETONE NEG (NEG); URINE LEUKOCYTE ESTERASE NEG (NEG); URINE NITRATE NEG (NEG); URINE PH 7.5 (5-8); URINE PROTEIN NEG (NEG); URINE SPECIFIC GRAVITY 1.008 (1.003-1.035); URINE UROBILINOGEN 0.2 MG/DL (NEG)
[2017-05-09 13:23] LABS: AMPHETAMINE NEG (NEG); BARBITURATES NEG (NEG); BENZODIAZEPINES NEG (NEG); COCAINE NEG (NEG); MARIJUANA NEG (NEG); OPIATES NEG (NEG); TRICYCLIC ANTIDEPRESSANTS NEG (NEG); U METHADONE NEG (NEG)
== END 2017-05-15 15:05 | disposition home or self-care (01) | DRG 885 ==
LOC: P2L 12:57 → P2S 12:57 → P2L 18:03
PROVIDERS: Specialist
DX: F33.1 Major depressive disorder, recurrent, moderate (principal); R45.851 Suicidal ideations; I10 Essential (primary) hypertension; K21.9 Gastro-esophageal reflux disease without esophagitis; F17.210 Nicotine dependence, cigarettes, uncomplicated; F60.3 Borderline personality disorder
CPT/HCPCS: 80053; 80307; 81003; 85025